=== PATIENT | female | born 1940 | race Caucasian/White ===

== ENCOUNTER → 2017-06-03 | Outpatient (CLI) | payer MEDICARE ==
--- NOTE | 2017-06-06 12:51 | MM ---
Reason for exam: screening (asymptomatic). Last mammogram was performed 2 years ago. History: Patient is postmenopausal. Family history of breast cancer in sister at age 52, breast cancer in maternal aunt at age 48, and breast cancer in 2 aunts. Excisional biopsy of the right breast, 1980. Took hormonal contraceptives for 12 years. Physical Findings: A clinical breast exam by your physician is recommended on an annual basis and results should be correlated with mammographic findings. MG 3D Screening Mammo W/Cad Bilateral CC and MLO view(s) were taken. Prior study comparison: June 16, 2015, bilateral MG screening mammo w CAD. May 16, 2013, bilateral digital screening mammo w/CAD. There are scattered fibroglandular densities. Finding: There are typically benign round calcifications in the right breast. There is no discrete abnormality. ASSESSMENT: Benign, BI-RAD 2 RECOMMENDATION: Routine screening mammogram of both breasts in 1 year. Manage on a clinical basis with regard to pain.
== END | disposition home or self-care (01) ==
LOC: RADMAMWWP 06:58
PROVIDERS: ATTEND Internal Medicine
DX: Z12.31 Encounter for screening mammogram for malignant neoplasm of breast (principal)
CPT/HCPCS: 77063; G0202

== ENCOUNTER → 2018-08-02 | Outpatient (CLI) | payer MEDICARE ==
--- NOTE | 2018-08-03 13:11 | MM ---
Reason for exam: screening (asymptomatic). Last mammogram was performed 1 year and 2 months ago. History: Patient is postmenopausal. Family history of breast cancer in sister at age 52, breast cancer in maternal aunt at age 48, and breast cancer in 2 aunts. Excisional biopsy of the right breast, 1980. Took hormonal contraceptives for 12 years. Physical Findings: A clinical breast exam by your physician is recommended on an annual basis and results should be correlated with mammographic findings. MG 3D Screening Mammo W/Cad Bilateral CC and MLO view(s) were taken. Prior study comparison: June 03, 2017, bilateral MG 3d screening mammo w/cad. June 16, 2015, bilateral MG screening mammo w CAD. There are scattered fibroglandular densities. No significant changes when compared with prior studies. ASSESSMENT: Benign, BI-RAD 2 RECOMMENDATION: Routine screening mammogram of both breasts in 1 year.
== END ==
LOC: RADMAMWWP 06:54
PROVIDERS: ATTEND Internal Medicine
DX: Z12.31 Encounter for screening mammogram for malignant neoplasm of breast (principal)
CPT/HCPCS: 77063; 77067

== ENCOUNTER → 2019-05-23 | Outpatient (CLI) | payer MEDICARE ==
--- NOTE | 2019-05-24 13:03 | MR ---
EXAMINATION TYPE: MR brain wo/w con DATE OF EXAM: 05/23/2019 COMPARISON: NONE HISTORY: headache unusual duration per order. Headache 6 date months per patient. TECHNIQUE: Multiplanar, multisequence images of the brain and brainstem is performed without and with IV contras t, utilizing 7.5 mL intravenous Gadavist . FINDINGS: Some distortion is present centered near level of right maxillary sinus making evaluation a t this level suboptimal. Diffusion weighted images demonstrate no evidence of a recent infarct or oth er diffusion abnormality. There is no significant extra-axial fluid collection. The ventricular sys tem and cisternal spaces are normal in size and appearance. The brain volume is age appropriate. Sca ttered foci of T2 hyperintensity throughout the superficial deep and periventricular regions are pres ent. Midline structures demonstrate normal morphology. The craniocervical junction appears within normal limits. Post contrast images demonstrate no abnormal enhancement. The dural venous sinuses appear pa tent. The visualized sinuses are clear and the globes are intact. IMPRESSION: [id number] nonspecific white matter changes may be on combination of product of chr onic small vessel ischemic change and/or altered vascular mechanics related to product of migraine he adaches.
== END | disposition home or self-care (01) ==
LOC: RADMRIMAIN 16:29
PROVIDERS: ATTEND Psychiatry & Neurology Neurology
DX: R90.89 Other abnormal findings on diagnostic imaging of central nervous system (principal); Z88.5 Allergy status to narcotic agent
CPT/HCPCS: 70553; A9585

== ENCOUNTER → 2024-06-14 | Outpatient (CLI) | payer MEDICARE ==
--- NOTE | 2024-06-15 08:41 | BD ---
EXAMINATION TYPE: Axial Bone Density DATE OF EXAM: 06/14/2024 CLINICAL HISTORY: 84 years old Female. ICD-10 CODE: N95.8 MENOPAUSAL AND PRIMENOPAUSAL DISORDER Height: 60in Weight: 148lb FRAX RISK QUESTIONS: History of Fracture in Adulthood: yes Secondary Osteoporosis: Rheumatoid Arthritis: yes RISK FACTORS HISTORY OF: Spine Fracture: cervical fractures When: 2016 MEDICATIONS: EXAM MEASUREMENTS: Bone mineral densitometry was performed using the [employer] System. Bone mineral density as measured about the Lumbar spine is: ----- L1-L4(G/cm2): 1.178 T Score Values are as follows: ----- L1: -1.5 ----- L2: -0.8 ----- L3: 1.1 ----- L4: 0.6 ----- L1-L4: 0.0 Z Score Values are as follows: ----- L1: 0.3 ----- L2: 1.0 ----- L3: 2.9 ----- L4: 2.4 ----- L1-L4: 1.8 Bone mineral density has: trend unavailable since study of: 08-07-10 Bone mineral density about the R hip (g/cm2): 0.757 Bone mineral density about the L hip (g/cm2): 0.818 T Score values are as follows: -----R Neck: -2.6 -----L Neck: -2.0 -----R Total: -2.0 -----L Total: -1.5 Z Score values are as follows: -----R Neck: -0.3 -----L Neck: 0.2 -----R Total: 0.1 -----L Total: 0.6 Bone mineral density has: Decreased -14.1% since study of: 08-07-10 FRAX%s: The graph provided illustrates a 34.1% chance for a major osteoporotic fx and a 13% chance fo r the hips probability for fx in 10 years time. IMPRESSION: Osteopenia (T Score between -2.5 and -1). There is slightly increased risk of fracture and the patient may be considered for treatment. Re-Screen 2-5 years. NOTE: T-SCORE=SD OF THE YOUNG ADULT MEAN.
== END | disposition home or self-care (01) ==
LOC: RADBDWWP 12:45
PROVIDERS: ATTEND Internal Medicine
DX: M81.0 Age-related osteoporosis without current pathological fracture (principal); M85.852 Other specified disorders of bone density and structure, left thigh; N95.8 Other specified menopausal and perimenopausal disorders; Z78.0 Asymptomatic menopausal state
CPT/HCPCS: 77080